=== PATIENT | male | born 1980 | race Caucasian/White ===

== ENCOUNTER 2017-03-25 08:20 | Emergency (ER) | payer BC ==
[~2017-03-25 08:20] MED LIST: NO MEDICATIONS; OCUFLOX10 ML OP
== END 2017-03-25 09:06 | disposition home or self-care (01) ==
LOC: CFTX 08:20 → CED 08:20 → CFTX 08:48
DX: T23.252A Burn of second degree of left palm, initial encounter (principal); F17.200 Nicotine dependence, unspecified, uncomplicated; Z23 Encounter for immunization
CPT/HCPCS: 16000; 90471; 90715; 99283